=== PATIENT | male | born 1985 ===

== ENCOUNTER 2020-05-30 13:10 | Emergency (ER) | payer OTHER ==
[2020-05-30 13:19] VITALS: BP 123/80
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
== END 2020-05-30 17:09 | disposition home or self-care (01) ==
LOC: ED 13:10
DX: S39.012A Strain of muscle, fascia and tendon of lower back, initial encounter (principal); S16.1XXA Strain of muscle, fascia and tendon at neck level, initial encounter; S50.11XA Contusion of right forearm, initial encounter; Z88.0 Allergy status to penicillin; Z79.899 Other long term (current) drug therapy; Z98.890 Other specified postprocedural states; V49.49XA Driver injured in collision with other motor vehicles in traffic accident, initial encounter; Y92.410 Unspecified street and highway as the place of occurrence of the external cause; Y93.89 Activity, other specified; Y99.8 Other external cause status